=== PATIENT | female | born 1985 | race Caucasian/White ===

== ENCOUNTER 2017-09-13 13:59 | Emergency (ER) | payer BC ==
[~2017-09-13] VITALS: Ht 167.6 cm; Wt 56.7 kg
[2017-09-13 14:00] VITALS: BP 98/60
== END 2017-09-13 15:05 | disposition home or self-care (01) ==
LOC: ER 14:23
DX: F41.9 Anxiety disorder, unspecified (principal); J45.909 Unspecified asthma, uncomplicated
CPT/HCPCS: A4606; Z7610